=== PATIENT | male | born 1985 | race Caucasian/White ===

== ENCOUNTER 2019-12-17 14:57 | Emergency (ER) | payer OTHER ==
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
[2019-12-17 15:27] VITALS: BP 183/129
== END 2019-12-17 15:39 ==
LOC: ER FS 15:03
DX: F15.121 Other stimulant abuse with intoxication delirium (principal)
CPT/HCPCS: 99284